=== PATIENT | female | born 1955 | race Caucasian/White ===

== ENCOUNTER → 2016-12-30 | Outpatient (CLI) | payer OTHER ==
[2016-12-30 12:08] LABS: BASO % 1.3 %; BASO ABS # 0.09 K/uL (0-0.2); COMPLETE YES; EOS % 0.7 %; HEMATOCRIT 46.4 % (37-47); IG% 0.3 %; LYMPH % 37.4 %; LYMPH ABS # 2.65 K/uL (1.2-3.4); MEAN CELL VOLUME 92.4 fL (80-100); MEAN CORPUSCULAR HEMOGLOBIN 30.7 pg (25-34); MEAN CORPUSCULAR HGB CONC 33.2 g/dl (32-36); MEAN PLATELET VOLUME 10.8 fL (7.4-10.4); MONO % 6.9 %; NEUT % 53.4 %; PLATELET COUNT 252 K/uL (130-400); RED BLOOD COUNT 5.02 M/uL (4.2-5.4); WHITE BLOOD COUNT 7.08 K/uL (4.8-10.8)
[2016-12-30 18:02] LABS: ALT/SGPT 25 U/L (12-78); AST/SGOT 13 U/L (15-37); BLOOD UREA NITROGEN 25 mg/dl (7-18); BUN/CREATININE RATIO 41.1 (10-20); CALCIUM 9.1 mg/dl (8.5-10.1); CARBON DIOXIDE 28 mmol/L (21-32); CHLORIDE 109 mmol/L (98-107); GLUCOSE 88 mg/dl (70-99); MAGNESIUM 2.4 mg/dl (1.8-2.4); POTASSIUM 4.5 mmol/L (3.5-5.1); SODIUM 142 mmol/L (136-145)
[2016-12-30 18:10] LABS: ALB/GLOB RATIO 1.3 (0.9-2); ALKALINE PHOSPHATASE 97 U/L (45-117); CHOLESTEROL 205 mg/dl (0-200); CHOLESTEROL/HDL RATIO 3.8; FERRITIN 422.7 ng/ml (8.0-388.0); HDL CHOLESTEROL 54 mg/dl; LDL CHOLESTEROL CALCULATED 125 mg/dl; THYROID STIMULATING HORMONE 0.291 uIu/ml (0.300-4.500); TRIGLYCERIDES 128 mg/dl (0-150); VERY LOW DENSITY LIPOPROT CALC 26 mg/dl
== END | disposition home or self-care (01) ==
LOC: C.LABBFT 11:13
PROVIDERS: ATTEND Internal Medicine
DX: Z00.00 Encounter for general adult medical examination without abnormal findings (principal); R25.2 Cramp and spasm; I10 Essential (primary) hypertension; R20.9 Unspecified disturbances of skin sensation; G25.81 Restless legs syndrome

== ENCOUNTER 2025-05-18 10:36 | Observation (INO) ==
--- NOTE | 2025-04-27 11:03 | PAT Medication Instructions ---
Medication Instructions Date of Service April 27, 2025 Home Medications Medication Instructions Recorded meloxicam 7.5 mg tablet 7.5 mg PO BIDM #60 tabs 02/08/25 magnesium oxide 500 mg capsule 500 mg PO DAILY vitamin B complex 1 tab PO DAILY meloxicam 7.5 mg tablet 7.5 mg PO BIDM diphenhydramine HCl 25 mg capsule (Benadryl) 50 mg PO HS omeprazole 20 mg capsule,delayed release 20 mg PO DAILY PRN Acid Reflux verapamil 180 mg tablet,extended release 360 mg PO HS ASK your surgeon for instructions meloxicam 7.5 mg tablet 7.5 mg PO BIDM DO NOT take the morning of surgery magnesium oxide 500 mg capsule 500 mg PO DAILY vitamin B complex 1 tab PO DAILY Take morning of surgery With a small sip of water, OTHERWISE NOTHING TO EAT OR DRINK AFTER MIDNIGHT: omeprazole 20 mg capsule,delayed release 20 mg PO DAILY PRN Acid Reflux (if needed) Take evening before surgery diphenhydramine HCl 25 mg capsule (Benadryl) 50 mg PO HS omeprazole 20 mg capsule,delayed release 20 mg PO DAILY PRN Acid Reflux (if needed) verapamil 180 mg tablet,extended release 360 mg PO HS Other Notes If you have any questions please call us at [phone] or [phone] or [phone] or [phone]
--- NOTE | 2025-05-02 13:09 | Anesthesiology Consultation ---
Date of Service May 02, 2025 Assessment & Plan (1) Encounter for pre-operative examination: - Outpatient joint assessment: Patient is currently scheduled for inpatient pathway. If re-evaluated and patient/surgeon requests outpatient pathway, patient is acceptable candidate for outpatient joint program from anesthesia standpoint pending surgeon's office assessment of pt motivation/support/completion of same day joint program preop requirements. Chart Review Chart Review: Acceptable Risk for Surgery and Patient seen in Pre Admission Testing Teaching & Discussion Pre-Anesthesia Teaching/Discussion Notes: Instructed NPO after midnight before surgery, except medications with 15 cc of water. Medication instructions provided according to the PAT guidelines. History Surgery Operation Date: 05/18/25 13:00 Proposed Procedures p Left Total Hip Arthroplasty Anterior - Eduar Jacob, Height/Weight Height: 5 ft 7 in Weight: 66.9 kg Allergies Allergy/AdvReac Type Severity Reaction Status Date / Time adhesive tape Allergy Intermediate Water Verified 04/26/25 15:11 Blister bacitracin Allergy Intermediate Water Verified 04/26/25 15:11 [From Neosporin Blister ([id number])] neomycin Allergy Intermediate Water Verified 04/26/25 15:11 [From Neosporin Blister ([id number])] polymyxin B Allergy Intermediate Water Verified 04/26/25 15:11 [From Neosporin Blister ([id number])] Penicillins Allergy Unknown Unknown Verified 04/26/25 15:11 Medications Home Medications Medication Instructions Recorded Confirmed Last Taken magnesium oxide 500 mg capsule 500 mg PO DAILY 10/20/19 04/26/25 Unknown vitamin B complex 1 tab PO DAILY 10/20/19 04/26/25 Unknown meloxicam 7.5 mg tablet 7.5 mg PO BIDM #60 tabs 02/08/25 04/26/25 Unknown diphenhydramine HCl 25 mg capsule 50 mg PO HS 04/26/25 04/26/25 Unknown (Benadryl) omeprazole 20 mg capsule,delayed 20 mg PO DAILY PRN Acid Reflux 04/26/25 04/26/25 Unknown release verapamil 180 mg tablet,extended 360 mg PO HS 04/26/25 04/26/25 Unknown release Past Medical History Medical History Exercise-induced leg cramps reason for verapamil Hypertension emr - pt denies, takes verapamil for leg cramps Patient denies h/o stroke, seizures, heart attack, heart failure, DM, blood clots/DVTs or blood transfusions. Exercise / Class Metabolic Activity II 4-5 Yardwork/Stairs/Walk up hill (ambulates with cane, denies chest discomfort or shortness of breath with one flight of stairs) Past Family History Family History Denies family history of Ovarian cancer Prostate cancer Myocardial infarction Breast cancer Colorectal cancer Past Surgical History Surgical History (Updated 05/02/25 @ 13:18 by Natalie Melo PA-C) History of skin graft ruvalcaba in childhood S/P tonsillectomy S/P tubal ligation Past Anesthesia History No Hx of Anesthesia Complications and No Family Hx of Anesthesia Complications History of PONV No Hx of PONV and No Hx of Motion Sickness Social History Smoking Status: Never smoker Do You Dip or Chew Tobacco: No Hx Alcohol Use: No Hx Substance Use: No substance use type: does not use Review of Systems Patient denies chest pain, shortness of breath, dyspnea on exertion, snoring, witnessed apneas, reflux, fever, chills, cough, wheezing, or palpitations. Physical Exam Vital Signs Vitals BP 108/69 P 68 TEMP 36.8 SP02 98% on RA RESP 17 Physical Patient resting comfortably in chair in no acute distress, alert and oriented, responding appropriately throughout visit Full cervical extension range of motion without pain TMD 3.5 finger breadths Mallampati Score 2 Dentition: one crown and one broken tooth, denies loose teeth, caps, implants or bridges Lungs: normal respiratory effort. Good air movement, clear throughout to auscultation, no adventitious breath sounds Cardiac: regular rate and rhythm, no murmurs noted Carotid arteries: negative bruit bilat Lab Results Anesthesia Preop Results Results Anesthesia Widget: WBC 7.68 K/ul (4.8-10.8) 05/02/25 Hgb 13.2 g/dl (12.0-16.0) 05/02/25 Hct 40.4 % (37.0-47.0) 05/02/25 Plt 233 K/uL (130-400) 05/02/25 Na 141 mmol/L (136-145) 05/02/25 K 4.4 mmol/L (3.5-5.1) 05/02/25 Cl 108 mmol/L (98-107) H 05/02/25 CO2 26 mmol/L (21-32) 05/02/25 BUN 28 mg/dl (6-23) H 05/02/25 Creat 0.85 mg/dl (0.6-1.2) 05/02/25 Glucose Level 104 mg/dl (70-99(Fasting)) H 05/02/25 PT 10.6 Seconds (9.0-12.0) 05/02/25 PTT 25 Seconds (21-31) 05/02/25 INR 1.0 (0.9-1.1) 05/02/25 Blood Type B Negative 05/02/25 Antibody Screen NEGATIVE 05/02/25 Testing Electrocardiogram Date: 05/02/25 NSR, rate 64 bpm Chest X-Ray Date: 05/02/25 No acute findings.
--- NOTE | 2025-05-17 07:24 | History & Physical Report ---
Date of Service May 17, 2025 Assessment & Plan (1) Osteoarthritis of left hip: We will proceed with a left anterior total of arthroplasty. Postoperatively, she will be started on aspirin for DVT prophylaxis and kept overnight in the hospital for postop medical management. She plans to use energy physical therapy upon discharge. History of Present Illness Chief Complaint: Osteoarthritis left hip. Primary Care Provider: Isaura Hopkins MD Elvia is a pleasant 70-year-old female who has been dealing with chronic, increasing left hip and groin pain. She saw another provider in our office. X- rays have shown advanced arthritis of the left hip. After failing extensive conservative treatment, she has elected proceed with a left anterior total of arthroplasty. Allergies Allergy/AdvReac Type Severity Reaction Status Date / Time adhesive tape Allergy Intermediate Water Verified 04/26/25 15:11 Blister bacitracin Allergy Intermediate Water Verified 04/26/25 15:11 [From Neosporin Blister ([id number])] neomycin Allergy Intermediate Water Verified 04/26/25 15:11 [From Neosporin Blister ([id number])] polymyxin B Allergy Intermediate Water Verified 04/26/25 15:11 [From Neosporin Blister ([id number])] Penicillins Allergy Unknown Unknown Verified 04/26/25 15:11 Home Medications Medication Instructions Recorded Confirmed Type magnesium oxide 500 mg capsule 500 mg PO DAILY 10/20/19 04/26/25 History vitamin B complex 1 tab PO DAILY 10/20/19 04/26/25 History meloxicam 7.5 mg tablet 7.5 mg PO BIDM #60 tabs 02/08/25 04/26/25 Rx diphenhydramine HCl 25 mg capsule 50 mg PO HS 04/26/25 04/26/25 History (Benadryl) omeprazole 20 mg capsule,delayed 20 mg PO DAILY PRN Acid Reflux 04/26/25 04/26/25 History release verapamil 180 mg tablet,extended 360 mg PO HS 04/26/25 04/26/25 History release Past Med/Surg History Problem List (Updated 05/17/25 @ 07:23 by Eduar Jacob DO) Osteoarthritis of left hip Encounter for pre-operative examination Hypertension (Chronic) Medical History Hypertension emr - pt denies, takes verapamil for leg cramps Exercise-induced leg cramps reason for verapamil Surgical History History of skin graft ruvalcaba in childhood S/P tubal ligation S/P tonsillectomy Family History Denies family history of Ovarian cancer Prostate cancer Myocardial infarction Breast cancer Colorectal cancer Social History Smoking Status: Never smoker Second Hand Exposure: No; Do You Dip or Chew Tobacco: No; Hx Alcohol Use: No Hx Substance Use: No Preferred Language: Bulgarian Communication Ability: Effective Visual Impairment: No Limitations Hearing Ability: Normal Washer Cutter Required: No Beliefs That Will Affect Care: None marital status: Current Living Situation: Alone current occupational status: employed current occupation: self-employed Feels Safe at Home: Yes Childhood Exposure to Second-Hand Smoke: No Diet: regular Dental Care, Regularly: No Physical Activity Frequency: 1-2 Times per Week Seatbelt Use: always Sunscreen Use: No Assistive Devices: Cane and Glasses Review of Systems All systems reviewed & are unremarkable except as noted in HPI & below. Physical Exam On physical exam of the left hip, she has decreased range of motion. She has pain with internal/external rotation. All of her pain is located in the groin.. Constitutional WD/WN, vitals as above Eyes PERRL, conjunctivae normal, anicteric sclerae ENMT external ear and nose normal, oropharynx normal Neck trachea midline, no thyromegaly Respiratory normal respiratory effort Cardiovascular RRR, no murmur, no edema Gastrointestinal (Abdomen) normal bowel sounds, soft, nontender, no hepatosplenomegaly Psychiatric A+Ox3, euthymic affect Results & Data Results & Data Laboratory Results . Diagnostic Findings . PG Care Time/CCT Total # of Minutes Spent Total Time Spent with Patient: Total time spent is greater than 50% in coordination of care (as documented) at patient's floor/unit and/or counseling patient: Coding Level of Care Code None Diagnoses Osteoarthritis of left hip M16.12
[~2025-05-18 10:36] MED LIST: BUPIVACAINE 0.5 % 5 MG/1 ML PF 10ML VIAL ONE; ROPIVACAINE 0.5% 5 MG/ML 30 ML VIAL ONE
[2025-05-18] MEDS: FAMOTIDINE 20 MG TAB PO SCH (10:56)
[2025-05-18] MEDS: GABAPENTIN 300 MG CAP PO SCH (10:56)
[2025-05-18] MEDS: ACETAMINOPHEN 500 MG TAB PO SCH ×2 (10:57→18:32)
[2025-05-18] MEDS: dexAMETHasone**PF** 10 MG/ML VIAL IV SCH (10:57)
[2025-05-18] MEDS: LR 500ML BOLUS, THEN 15ML/HR IV SCH (11:04)
--- NOTE | 2025-05-18 11:32 | History & Physical Bridge Note ---
Date of Service May 18, 2025 History & Physical Bridge Note I have examined the patient, reviewed the History & Physical and in the interval since the performance of the History & Physical I have noted the following changes of clinical significance: no changes noted
[2025-05-18] MEDS ORDERED: Nursing to Pharmacy Communication SCH (11:45)
[2025-05-18] MEDS ORDERED: MIDAZOLAM HCL 1 MG/ML 2ML VIAL ONE (11:55)
[2025-05-18] MEDS ORDERED: ONDANSETRON INJ 2 MG/ML 2 ML VIAL IV PRN ×2 (12:15→17:26)
[2025-05-18] MEDS ORDERED: ATROPINE SULFATE 0.1 MG/ML 10ML SYR IV PRN (12:15)
[2025-05-18] MEDS: TRANEXAMIC ACID 1,000 MG **IV Pre-op IV SCH (12:29)
[2025-05-18] MEDS ORDERED: KETAMINE HCL 10MG/ML SYR ONE (13:00)
[2025-05-18] MEDS: ORTHO JOINT ANESTHETIC ONE (13:11)
[2025-05-18] MEDS ORDERED: PROPOFOL IV EMULSION 10 MG/ML 20 ML VIAL IV ONE (13:36)
[2025-05-18] MEDS ORDERED: LIDOCAINE 2% 2 ML VIAL/AMP(20MG/ML) INFIL ONE (13:36)
[2025-05-18] MEDS ORDERED: ONDANSETRON INJ 2 MG/ML 2 ML VIAL ONE (13:50)
[2025-05-18] MEDS ORDERED: PHENYLEPHRINE 100MCG/ML 5ML SYR ONE ×2 (13:50→14:13)
[2025-05-18] MEDS ORDERED: ePHEDrine sulfate 50 MG/5 ML SYR ONE (13:50)
[2025-05-18] MEDS: ROPIV 0.5% 246mg, Ketorolac 30mg, EPINEPHrine 0.5mg in NSS INFIL SCH (14:07)
--- NOTE | 2025-05-18 14:32 | Fluoroscopy Report ---
INTRAOPERATIVE RADIOGRAPHS CLINICAL HISTORY: Left hip arthroplasty. Fluoro time: 20 seconds Ka,r: 1.86 mGy FINDINGS: A single spot fluoroscopic view of the left hip is correlated with x-rays dated 03/15/2025. A bipolar left hip arthroplasty is in near anatomic alignment. There is no evidence of acute fracture on this fluoroscopic view. IMPRESSION: Intraoperative image from a left hip arthroplasty procedure. Electronically signed by: Patrick Silver M.D. 05/18/2025 2:31 PM
--- NOTE | 2025-05-18 14:40 | Operative Report ---
PG Post Operative Report Pre & Post Diagnosis Operation Date: 05/18/25 12:00 Pre-Op Diagnosis: Osteoarthritis of left hip Post-Op Diagnosis: Osteoarthritis of left hip I identified the patient and participated in the time-out.: Yes Procedure Operation Date: 05/18/25 12:00 Actual Procedures p Left Anterior Total Hip Arthroplasty(Left) - Eduar Jacob DO Surgeon Eduar Jacob DO Clinical Cytogeneticist Mariola Bansal PA-C Estimated Blood Loss 300 Findings Consistent with Post-Op Diagnosis Specimens Left femoral head Description of Procedure Implants used I used a [employer]immer[employer]omet total hip arthroplasty system with a size 11 echo stem, a 52 mm G7 cup , an E1 polyethylene liner, a 36 mm ceramic head with a +9 neck. Elvia arrived at the hospital for the above procedure. She was seen in the preoperative holding area and the operative extremity was identified and signed. She was given a spinal anesthetic, a preoperative antibiotic, and TXA. She was then taken back to the operating room and laid on the table in the supine position. She was given basic sedation. The operative leg was secured to a Puristst leg positioner. The hip was then prepped and draped in sterile fashion. A timeout was done and the patient and the operative extremity was properly identified. An anterior approach was used. Dissection was taken down through the fascia and the tensor muscle belly was retracted laterally and the rectus was retracted medially. The circumflex vessels were identified and ligated. The capsule was then incised and tagged for later repair. The femoral neck was then cut and the femoral head was removed. The acetabulum was exposed. Time was spent doing a complete circumferential labral release. Sequential reaming of the acetabulum up to a size 51 reamer was done. Final reamings were done under fluoroscopy to ensure appropriate version. A Biomet 52 mm G7 cup was then impacted into place. The E1 polyethylene liner was then snapped into place. Surrounding soft tissues were then injected with 100 cc of an orthopedic pain control cocktail. The proximal femur was then exposed. Initially sequential broaching was done for a press-fit Z1 implant. However the metaphyseal bone quality was very poor and there was no rotational stability of the implant. At this point I decided to do a cemented echo implant. Sequential broaching up to a size 11 broach was done. Off that broach a size 36 head with a +9 neck was trialed. The hip was reduced and fluoroscopic images showed anatomic alignment of the implants in acceptable length. The broach was removed. The final size 11 Jae echo stem was then cemented into place. Once cement had hardened, A ceramic 36 mm head with a +9 neck was then impacted onto the stem and the hip was reduced. Final fluoroscopic images showed anatomic alignment of the hip. The capsule was then closed with #1 Vicryl suture. A dilute betadyne lavage was then done for 3 minutes. The joint was then irrigated with normal saline solution. The fascia was closed with #1 PDS suture. Skin was closed with 2-0 Vicryl, Haysi Zipline, and a Silverlon dressing. She was then transferred to a hospital bed and taken to the post anesthesia care unit in stable condition. She tolerated the procedure well. Mariola Bansal PA-C, was present for the entire procedure. He was critical for patient positioning, prepping, draping, retraction exposure, wound closure and application of sterile dressing. I attest to the content of the Intraoperative Record and any orders documented therein. Any exceptions are noted below.
[2025-05-18] MEDS ORDERED: DexMEDEtomidine HCL IV 100 MCG/ML VIAL IV ONE (14:48)
--- NOTE | 2025-05-18 15:15 | XRay Report ---
XR hip 1V LT w pelvis CLINICAL HISTORY: IN PACU - Post Surgical COMPARISON: 03/15/2025 FINDINGS: Left hip prosthesis shows no hardware complication. There is expected soft tissue gas. IMPRESSION: Unremarkable postoperative exam. ACT 112: Negative or not required by law. Electronically signed by: Stanley Jones M.D. 05/18/2025 3:14 PM
--- NOTE | 2025-05-18 16:51 | Anesthesiology Progress Note ---
Date of Service May 18, 2025 Anesthesia Post Procedure Vital Signs Vital Signs: Temp Pulse Pulse Resp BP BP Pulse Ox 05/18/25 16:45 36.4 C L 74 16 101/59 L 99 05/18/25 16:35 68 18 109/58 L 98 05/18/25 16:25 64 12 106/60 97 05/18/25 16:15 68 16 104/53 L 95 05/18/25 16:05 66 20 102/54 L 96 05/18/25 15:55 67 20 98/56 L 96 05/18/25 15:45 63 16 99/56 L 99 05/18/25 15:35 67 18 100/51 L 96 05/18/25 15:25 60 16 104/59 L 99 05/18/25 15:15 61 20 110/61 100 05/18/25 15:05 70 16 111/62 100 05/18/25 14:55 66 14 101/56 L 100 05/18/25 14:45 70 18 104/59 L 100 05/18/25 14:35 36.4 C L 74 18 105/56 L 97 05/18/25 10:46 36.8 C 64 20 159/73 H 99 O2 Del Method O2 Flow Rate 05/18/25 16:45 Room Air 05/18/25 16:35 Room Air 05/18/25 16:25 Room Air 05/18/25 16:15 Room Air 05/18/25 16:05 Room Air 05/18/25 15:55 Room Air 05/18/25 15:45 Room Air 05/18/25 15:35 Room Air 05/18/25 15:25 Room Air 05/18/25 15:15 Oxymask 4 05/18/25 15:05 Oxymask 4 05/18/25 14:55 Oxymask 4 05/18/25 14:45 Oxymask 4 05/18/25 14:35 Oxymask 6 05/18/25 10:46 Room Air Transfer of Care Handoff Completed per policy Notes Mental Status: alert / awake / arousable Patient Amnestic to Procedure: Yes Nausea / Vomiting: adequately controlled Pain: adequately controlled Airway Patency, RR, SpO2: stable & adequate BP & HR: stable & adequate Hydration State: stable & adequate Neuraxial Anesthesia: was administered and sensory block is resolving Anesthetic Complications: no major complications apparent
[2025-05-18] MEDS ORDERED: MAGNESIUM HYDROXIDE SUSP 30 ML UDC PO PRN (17:26)
[2025-05-18] MEDS ORDERED: HYDROmorphone INJ 0.5 MG/0.5 ML SYR IV PRN (17:26)
[2025-05-18] MEDS ORDERED: NALOXONE HCL 0.4 MG/1 ML VIAL/CARP IV PRN (17:26)
[2025-05-18] MEDS ORDERED: METOCLOPRAMIDE HCL INJ 5 MG/ML 2 ML VIAL IV PRN (17:26)
[2025-05-18] MEDS: SODIUM CHLORIDE 0.9% 1,000 ML IV SCH (17:49)
[2025-05-18] MEDS: KETOROLAC TROMETHAMINE 15 MG/ML VIAL IV SCH (18:28)
[2025-05-18] MEDS: LR 60ML/HR IV SCH (19:11)
[2025-05-18] MEDS: DOCUSATE SODIUM 100 MG CAP PO SCH (20:29)
[2025-05-18] MEDS: SENNA 8.6 MG TAB PO SCH (20:29)
[2025-05-18] MEDS: ASPIRIN 81 MG ECTAB PO SCH (20:30)
[2025-05-18] MEDS: diphenhydrAMINE Capsule 25 MG CAP PO SCH (20:30)
[2025-05-18] MEDS: VERAPAMIL HCL 180 MG TABCR PO SCH (20:30)
[2025-05-18 23:30] VITALS: TEMP 97.9
[2025-05-19 07:00] VITALS: PULSE 63; RESP 16; O2SAT 98
--- NOTE | 2025-05-19 08:58 | Orthopedic Progress Note ---
Date of Service May 19, 2025 Assessment & Plan (1) S/P total left hip arthroplasty: Overall she is doing very well. She is not having much pain in the left hip. She will be seen by physical therapy today for ambulation and range of motion exercises. She is on aspirin for DVT prophylaxis. She can be discharged to home later today. She will follow-up with orthopedics in 2 weeks. Aretha Gan was seen and examined at bedside this morning. Overall she is doing very well. She is not having much pain in the left hip. She has been up and ambulating to the bathroom. She has no complaints.. Review of Systems All systems reviewed & are unremarkable except as noted in HPI & below. Physical Exam On physical exam of the left hip, the dressing is clean and dry. Her leg is out full extension. She has active dorsiflexion and plantarflexion of her left ankle.. Results & Data Results & Data Laboratory Results . Diagnostic Findings Postoperative x-rays of the left hip show the prosthesis to be in anatomic alignment without any evidence of fracture complication, or loosening.. PG Care Time/CCT Total # of Minutes Spent Total Time Spent with Patient: Total time spent is greater than 50% in coordination of care (as documented) at patient's floor/unit and/or counseling patient: Coding Level of Care Code 75808 Post Operative Follow-Up Diagnoses S/P total left hip arthroplasty Z96.642
[2025-05-19] MEDS: MAGNESIUM OXIDE 400 MG TAB PO SCH (09:18)
[2025-05-19] MEDS: MULTIVITAMIN TAB PO SCH (09:18)
[2025-05-19 10:19] VITALS: BP 113/73
== END 2025-05-19 10:42 | disposition home or self-care (01) ==
LOC: 3E 10:36 → ASU 10:36